=== PATIENT | female | born 1975 | race Caucasian/White ===

== ENCOUNTER 2016-11-13 07:27 | Observation (INO) | payer BC ==
--- NOTE | 2016-10-27 12:53 | GHP ---
[f rep st] PREOP HISTORY AND PHYSICAL DATE OF ADMISSION: 11/13/2016 PLANNED PROCEDURE: Total laparoscopic hysterectomy with bilateral salpingectomy and probable left o ophorectomy and possible bilateral oophorectomy. INDICATIONS: Patient is a 41-year-old, 0, with a longstanding history of chronic pelvic kerrie n, dysmenorrhea, and severe cramping. Patient had been on control pills for years, but stoppe d secondary to side effects. She was always bleeding, felt foggy. If she did not take her co ntrol pills at the exact same time of day she would bleed for a week or two. She also has PCOS and worsening hidradenitis suppurativa due to control pills. When she stopped her control p ills her period pain significantly increased, her periods are much heavier and crampy. Patient is r equesting definitive therapy. She does not plan on having any children. We had a long discussion w ith management options with the patient. We decided to proceed with a total laparoscopic hysterecto my with bilateral salpingectomy. She does have pain more on the left side than the right. She woul d like to have her left ovary removed. She has not had a diagnostic laparoscopy. We discussed the possibility of endometriosis and possibly needing to reoperate at some point to take out other ovary if her pain does not resolve; however, because she is 41 it would be preferable to not take out bot h of her ovaries at this time if possible. MEDICAL HISTORY: Significant for polycystic ovarian syndrome, hidradenitis suppurativa, dysmenorrhe a, cervical dysplasia, history of stomach ulcers. MEDICATIONS: Vitamins, Bactrim DS for her hidradenitis. SURGICAL HISTORY: Umbilical hernia repair, cholecystectomy, removal of hidradenitis suppurativa. ALLERGIES: Clindamycin. SOCIAL HISTORY: The patient denies tobacco or drug use. FAMILY MEDICAL HISTORY: Noncontributory. 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 Periods every 30 days, lasting 4 days. They are very heavy and c rampy. She has not tolerated control pills in the past. She does have a history of HPV. She had a low-grade Pap smear in 2014, which revealed ENMANUEL 1. Repeat Paps have been negative. She david es any history of any other sexually transmitted diseases. REVIEW OF SYSTEMS: 10-point review of systems is negative with the exception of the above mentioned pertinent positives. PHYSICAL EXAMINATION: VITAL SIGNS: Patient's blood pressure is 90/54. Her weight is 138. GENERAL APPEARANCE: No acute distress. PSYCH: Alert and oriented x3 and appropriate affect. LUNGS: Ihsan ar to auscultation bilaterally. HEART: Rate is regular. NECK: Supple, mobile, and there is no th yromegaly noted. ABDOMEN: There is no organomegaly. It is soft, nondistended, nontender. EXTREMI TIES: Reveal no calf tenderness or edema. PELVIC: Reveals a mobile, midposition uterus with no ad nexal masses. EXTREMITIES: Reveal no calf tenderness or edema. IMAGING: Pelvic ultrasound shows uterus measuring 7 x 4 x 5 cm with probable adenomyosis. Her endo metrium was 0.52 cm and there is a possible polyp on the inside of her uterus. Normal ovaries were noted. Endometrial biopsy was obtained which was unremarkable. ASSESSMENT AND PLAN: 41-year-old, 0, with a longstanding history of polycystic ovarian synd nyla, chronic pelvic pain, dysmenorrhea, and menorrhagia. The patient is electing to have definitiv e therapy with a total laparoscopic hysterectomy with bilateral salpingectomy. She would like to gonzalez ve her left ovary removed and possibly both ovaries if indicated. Risks and benefits have been exte nsively reviewed with the patient. The patient is aware that if she has both of her ovaries removed she will be at increased risk of early osteoporosis and will go into menopause. The patient has be en properly consented. /[id number]/MODL
[~2016-11-13 07:27] MED LIST: SCOPOLAMINE HYDROBROMIDE 1.5 MG PATCH TD ONE
[2016-11-13] MEDS ORDERED: BUPIVACAINE 0.5% 30 ML SDV ONE (07:42)
[2016-11-13] MEDS ORDERED: LIDOCAINE 1% 2 ML INJ ID PRN (07:51)
[2016-11-13] MEDS ORDERED: fentaNYL 100 MCG/2 ML INJ ONE ×2 (07:51→13:25)
[2016-11-13] MEDS ORDERED: DEXAMETHASONE 4 MG/ML VIAL ONE (07:51)
[2016-11-13] MEDS ORDERED: ONDANSETRON 4 MG/2 ML VIAL ONE ×2 (07:51→13:38)
[2016-11-13] MEDS ORDERED: LR 1,000 ML IV ONE (07:51)
[2016-11-13] MEDS ORDERED: PROPOFOL 200 MG/20 ML VIAL ONE (07:51)
[2016-11-13] MEDS ORDERED: ROCURONIUM 50 MG/5 ML VIAL ONE (07:51)
[2016-11-13] MEDS ORDERED: MIDAZOLAM 2 MG/2 ML VIAL IVP ONE (08:01)
--- NOTE | 2016-11-13 08:55 | PDANEPAE ---
ANE History of Present Illness 41 year old female with PCOS, obesity, and chronic pelvic pain. She has a history of PONV and placed her scopolamine patch on last evening. She is otherwise healthy and denies URI the last 6 weeks. ANE Past Medical History - Cardiovascular History Hx Hypertension: No Hx Arrhythmias: No Hx Chest Pain: No Hx Coronary Artery / Peripheral Vascular Disease: No Hx CHF / Valvular Disease: No Hx Palpitations: No - Pulmonary History Hx COPD: No Hx Asthma/Reactive Airway Disease: No Hx Recent Upper Respiratory Infection: No Hx Oxygen in Use at Home: No - Neurologic History Hx Cerebrovascular Accident: No Hx Seizures: No Hx Dementia: No - Endocrine History Hx Diabetes: No - Renal History Hx Renal Disorders: No - Liver History Hx Hepatic Disorders: No - Neurological & Psychiatric Hx Hx Neurological and Psychiatric Disorders: No - Cancer History Hx Cancer: No - Congenital Disorder History Hx Congenital Disorders: No - GI History Hx Gastrointestinal Disorders: No - Chronic Pain History Chronic Pain: Yes (PELVIC PAIN) ANE Review of Systems - Exercise capacity METS (RN): 6 METS ANE Patient History - Allergies Allergies/Adverse Reactions: acetaminophen [From [place]] Allergy (Verified 10/28/16 10:53) Itching clindamycin Allergy (Verified 10/28/16 10:53) Swelling/neck,face,throat gluten Allergy (Verified 11/10/16 18:05) hydrocodone [From [place]] Allergy (Verified 10/28/16 10:53) Itching Milk Containing Products [dairy] Allergy (Verified 11/10/16 18:05) - Home Medications Home Medications: Ascorbic Acid [Vitamin C 500 mg (*)] 1,000 mg PO DAILY 10/28/16 [Last Taken Unknown] Cholecalciferol Vit D3 [Vitamin D3 2000 units tab (OTC)] 10,000 units PO DAILY 10/28/16 [Last Taken Unknown] Herbals/Supplements -Info Only 1 ea PO DAILY 10/28/16 [Last Taken Unknown] Sulfamethox/Tmp 800/160 mg [Bactrim Ds] 1 tab PO DAILY 10/28/16 [Last Taken Unknown] Vitamin B Complex [B Complex] 2 each PO DAILY 10/28/16 [Last Taken Unknown] - NPO status NPO Since - Liquids (Date): 11/12/16 NPO Since - Liquids (Time): 00:00 NPO Since - Solids (Date): 11/12/16 NPO Since - Solids (Time): 00:00 - Smoking Hx Smoking Status: Never smoked - Family Anes Hx Family Hx Anesthesia Complications: NONE ANE Labs/Vital Signs - Vital Signs Blood Pressure: 96/65 Heart Rate: 76 Respiratory Rate: 16 O2 Sat (%): 94 Height: 154.94 cm Weight: 54.431 kg ANE Physical Exam - Airway Neck exam: FROM Mallampati Score: Class 1 Mouth exam: normal dental/mouth exam, poor dentition - Pulmonary Pulmonary: no respiratory distress - Cardiovascular Cardiovascular: regular rate and rhythym - ASA Status ASA Status: I (multiple chips on upper and lower teeth)
--- NOTE | 2016-11-13 09:00 | PDHPUP ---
History & Physical Update H&P update statement: This history and physical update is based on an assessment of the patient which was completed after admission or registration (within 24 hours), but prior to the surgery/procedure. H&P update: H&P reviewed & patient examined, no change in patient's condition since H&P completed (will remove bilateral fallopian tubes and likely the right ovary. if endometriosis may only want minimal ablation of it )
[2016-11-13] MEDS ORDERED: ceFAZolin 2 GM/DEXTROSE 100 ML IV ONE ×2 (09:14→09:16)
[2016-11-13] MEDS ORDERED: ceFAZolin 1 GM VIAL ONE (09:16)
[2016-11-13] MEDS ORDERED: OXYCODONE/APAP 5/325 TAB PO PRN (09:46)
[2016-11-13] MEDS ORDERED: PROMETHAZINE HCL 25 MG/ML INJ IVP PRN (09:46)
[2016-11-13] MEDS ORDERED: NALOXONE HCL 0.4 MG/ML INJ IVP PRN (09:46)
[2016-11-13] MEDS ORDERED: ONDANSETRON 4 MG/2 ML VIAL IVP PRN (09:46)
[2016-11-13] MEDS ORDERED: MEPERIDINE 25 MG/ML SYR IVP PRN (09:46)
[2016-11-13] MEDS ORDERED: LR 500 ML IV PRN (09:46)
[2016-11-13] MEDS ORDERED: morphINE *ANESTHESIA ONLY* 10 MG/ML VIAL ONE (10:20)
[2016-11-13] MEDS ORDERED: HYDROCODONE/APAP 5/325 TAB PO PRN (13:26)
[2016-11-13] MEDS: fentaNYL 100 MCG/2 ML INJ IVP PRN ×2 (13:27→13:44)
[2016-11-13] MEDS ORDERED: LR 1,000 ML IV SCH (13:30)
--- NOTE | 2016-11-13 14:24 | POSTANESTH ---
Post Anesthetic Evaluation Cardiovascular Status: Normal, Stable Respiratory Status: Normal, Stable Level of Consciousness/Mental Status: Can Participate in Eval Pain Control: Adequate, Prn Tx Ordered Nausea/Vomiting Control: Adequate, Prn Tx Ordered Complications Possibly Related to Anesthesia: None Noted
[2016-11-13] MEDS: ONDANSETRON 4 MG/2 ML VIAL IVP PRN ×2 (18:28→22:22)
[2016-11-13] MEDS: KETOROLAC 15 MG/1 ML SDV IVP SCH (18:56)
--- NOTE | 2016-11-13 19:19 | POSTOPPROG ---
Post Op Note Date of Operation: 11/13/16 Surgeon: Tamiko Johnson Gis Mapping Technician: hui smiley Anesthesia: GET(General Endotracheal) Pre-op Diagnosis: chronic pelvic pain, menorrhagia Post-op Diagnosis: same Procedure: total laparoscopic hysterectomy, bilateral salpingectomy, left oophrectomy Inf/Abcess present in the surg proc area at time of surgery?: No EBL: 50-100 Specimen(s): uterus, bilateral tubes, left ovary
--- NOTE | 2016-11-13 19:22 | SOAPPROG ---
SOAP Progress Note Assessment/Plan: Assessment: pod# 0 s/p TLH BS uncomplicated post operative course Plan: routine post operative care 11/13/16 19:21 Subjective: patient is doing great. had an episode of nausea. pain is well controlled. tolerating clears. long discussion about surgical findings and locating needle intraoperatively. Objective: Vital Signs Temp Pulse Resp BP Pulse Ox 36.5 C 72 16 100/65 100 11/13/16 17:32 11/13/16 17:32 11/13/16 17:32 11/13/16 17:32 11/13/16 17:32 11/12/16 11/13/16 11/14/16 05:59 05:59 05:59 Intake Total 100 Output Total 350 Balance -250 Physical Exam - Physical Exam General Appearance: WD/WN, alert, no apparent distress Respiratory: chest non-tender, lungs clear, normal breath sounds Cardiac/Chest: normal peripheral pulses, regular rate, rhythm Abdomen: normal bowel sounds, non-tender, soft Skin: normal color, warm/dry Extremities: normal range of motion, non-tender, normal inspection, normal capillary refill Neuro/Psych: no motor/sensory deficits, alert, normal mood/affect, oriented x 3 ICD10 Worksheet Patient Problems: Problems Problem Status Onset Menorrhagia Acute Menorrhagia Acute
[2016-11-14] MEDS: KETOROLAC 15 MG/1 ML SDV IVP SCH ×3 (00:07→11:22)
[2016-11-14 04:56] LABS: HEMATOCRIT 30.1 % (38.0-47.0); HEMOGLOBIN 10.2 g/dL (12.6-16.3)
[2016-11-14 05:24] VITALS: O2SAT 96
[2016-11-14] MEDS: ONDANSETRON 4 MG/2 ML VIAL IVP PRN (05:34)
[2016-11-14] MEDS: OXYCODONE/APAP 5/325 TAB PO PRN ×3 (05:35→11:24)
[2016-11-14] MEDS ORDERED: PATCH REMOVAL 1 EA PATCH TD ONE (06:00)
--- NOTE | 2016-11-14 06:30 | GOP ---
[f rep st] OPERATIVE REPORT DATE OF OPERATION: 11/13/2016 SURGEON: Tamiko Johnson DO ACCOUNTS PAYABLE ASSISTANT: Sylwia Page. ANESTHESIA: General endotracheal tube. PREOPERATIVE DIAGNOSIS: Chronic pelvic pain, dysmenorrhea and menorrhagia. POSTOPERATIVE DIAGNOSIS: Chronic pelvic pain, dysmenorrhea and menorrhagia. PROCEDURE PERFORMED: Total laparoscopic hysterectomy with bilateral salpingectomy and left oophorectomy and location of misplaced needle. FINDINGS: 1. Exam under anesthesia, mobile, mid position uterus with no adnexal masses. 1. Laparoscopic findings: Normal ovaries, uterus and tubes. Right ovary had a simple cyst on it. Left ovary is unremarkable. 2. SPECIMENS: Uterus, bilateral fallopian tubes and left ovary. ESTIMATED BLOOD LOSS: 10 cc. INDICATIONS: Patient is a 41-year-old, 0 with a longstanding history of polycystic ovarian syndrome, chronic pelvic pain, dysmenorrhea and menorrhagia and patient has failed medical therapy and would like to proceed with definitive therapy with total laparoscopic hysterectomy with bilateral salpingectomy and removal of her left ovary. Risks have been extensively reviewed with the patient. Patient then properly consented. DESCRIPTION OF PROCEDURE: Patient was taken to the operating room with intravenous fluids in place. She was given 2 g of Ancef. She was then placed on the operating room table in the dorsal supine position where general anesthesia was obtained with a glide scope. She was then repositioned to the dorsal lithotomy position with the Yellofin stirrups and prepped and draped in the normal sterile fashion. Exam under anesthesia revealed a mobile mid position uterus with no adnexal masses. A speculum was then placed in the patient's vagina and a single-tooth tenaculum was used to grasp the anterior lip of the cervix and the cervix was then sounded to 8 cm. The BRENDON uterine manipulator was then assembled with the large plastic cup and the 6 cm uterine manipulator. This was then introduced after both balloons were tested and the uterus was then freely mobile. The speculum was then withdrawn. Attention was then turned to the patient's abdomen where a 5 mm skin incision was then made in the umbilicus. A 5 mm trocar was then advanced into the patient's abdomen under direct visualization with the Optiview. The abdomen was then insufflated with CO2 gas until an adequate pneumoperitoneum was achieved. The area underneath the trocar insertion site was found to be unremarkable. A 5 mm skin incision was then made in the patient's right lower quadrant. The trocar was advanced into the patient's abdomen under direct visualization. Attention was then turned to the patient's left lower quadrant where a 10 mm skin incision was then made and a 10 mm trocar was then advanced into the patient's abdomen under direct visualization. The uterus was freely mobile. The ovaries, uterus and tubes were overall unremarkable. Because the patient has history of more pain on the left lower quadrant, patient requested the left ovary to be removed. A left salpingo-oophorectomy was performed and the left ovary and tube were then placed in the posterior cul-de-sac. The bilateral ureters were noted to be peristalsing. The left round ligament was then clamped and transected with the LigaSure. The anterior and posterior leaflets of the broad ligament were then clamped, cauterized, and transected. The uterine arteries were then skeletonized, clamped, cauterized, and transected. The bladder flap was created anteriorly and the colpotomy ring was clearly visualized and palpated. Attention was then turned to the patient's right side. The ovary was unremarkable with the exception of a small simple cyst. This was incised and drained and hemostasis was assured. The right salpingectomy was performed and the specimen was then placed in the posterior cul-de-sac. The right round ligament and broad ligaments were then clamped, cauterized, and transected. The uterine arteries were then skeletonized, clamped, cauterized, and transected. The bladder flap was created anteriorly and the colpotomy ring was clearly identified. The LigaSure hook was then used to perform the colpotomy. This was done without difficulty. The uterus was then withdrawn into the patient's vagina and handed off as specimen. A Ray-Michael and a glove was then inserted into the vagina to maintain pneumoperitoneum. The V-Loc Endocrine: - stitch was then used to close the vaginal cuff in a running fashion. Hemostasis was achieved. Once the vaginal cuff was closed, the endo-stitch suture was cut. The needle dislodged from the endo-stitch, so then it was grasped with a [place] and then attempted to be withdrawn through the trocar. It did not come out through because the needle was slightly wider than the tip of the trocar. The trocar was withdrawn with the suture in the tip of the [place]. When the trocar was then withdrawn, the needle was no longer in the [place]. The area underneath the trocar was explored and no needle was appreciated. We obtained a flatplate x-ray of the abdomen and the needle was suspected to be in the tissue between the peritoneum and the skin. Radiologist was consulted and came into the operating room. The C-arm was used initially to attempt to identify and locate the needle. A 2nd incision was made lower on the abdomen over the needle site on the C-arm. We spent 2+ hours trying to localize this needle. Dr Jony Guzman was then called in to help facilitate isolating the needle, which he was able to do. Following completion of this, the ovary and tube were then withdrawn through the trocar without difficulty and handed off with part of the specimen. The trocars were removed from the patient's abdomen after CO2 gas was expressed. The fascia was closed with 0 Vicryl and the 10 mm trocar site where the needle had been found, as the fascial incision had been extended. Hemostasis was assured. The skin was then closed of all the incisions with 4-0 Monocryl in a subcuticular fashion. A speculum exam was performed and the vaginal cuff was noted to be intact. Patient was then returned to the dorsal supine position where she was easily awoken from anesthesia. Sponge, lap and needle counts were correct x2. Patient was transported to recovery room in stable condition. /[id number]/MODL MTDD
[2016-11-14] MEDS ORDERED: ONDANSETRON DISINTEGRATING 4 MG TAB PO PRN (08:24)
--- NOTE | 2016-11-14 08:26 | SOAPPROG ---
SOAP Progress Note Assessment/Plan: Assessment: pod# 1 s/p TLH BS uncomplicated post operative course Plan: routine post operative care discharge instructions 11/14/16 08:24 Subjective: patient is doing great. pain is well controlled with toradol and one percocet. mason removed last night. voiding without difficulty. minimal vaginal spotting with wiping. ambulating. tolerating diet. no concerns or complaints. is ready to go home. reviewed discharge instructions and follow up plan. Objective: Vital Signs Temp Pulse Resp BP Pulse Ox 37 C 71 17 94/56 L 96 11/14/16 05:22 11/14/16 05:22 11/14/16 05:22 11/14/16 05:22 11/14/16 05:22 Laboratory Results 11/14/16 04:26 11/13/16 11/14/16 11/15/16 05:59 05:59 05:59 Intake Total 900 Output Total 650 Balance 250 Physical Exam - Physical Exam General Appearance: WD/WN, alert, no apparent distress Respiratory: chest non-tender, lungs clear, normal breath sounds Cardiac/Chest: normal peripheral pulses, regular rate, rhythm Abdomen: normal bowel sounds, non-tender, soft Skin: normal color, warm/dry, other (incisions clean dry and intact) Extremities: normal range of motion, non-tender, normal inspection, normal capillary refill Neuro/Psych: no motor/sensory deficits, alert, normal mood/affect, oriented x 3 ICD10 Worksheet Patient Problems: Problems Problem Status Onset Menorrhagia Acute Menorrhagia Acute
[2016-11-14 08:27] VITALS: BP 83/45; PULSE 81; RESP 18; TEMP 98.1
--- NOTE | 2016-11-14 13:21 | GDS ---
[f rep st] DISCHARGE SUMMARY ADMISSION DIAGNOSIS: Chronic pelvic pain and menorrhagia. DISCHARGE DIAGNOSIS: Chronic pelvic pain and menorrhagia, status post total laparoscopic hysterecto my with bilateral salpingectomy and left oophorectomy. HISTORY OF PRESENT ILLNESS: The patient is a 41-year-old 0, who had a longstanding history of chronic pelvic pain and heavy periods. She elected to proceed with a total laparoscopic hysterec tyree with bilateral salpingectomy and removal of her left ovary. The patient's surgery was uncompli cated with the exception of needing to spend additional time locating a small needle that became dis lodged in her subcutaneous tissue. That was ultimately found, but the remainder of her postoperativ e course was unremarkable. On postoperative day #0, patient's May catheter was removed. She was able to ambulate. She was voiding without difficulty and tolerating her diet. Her pain has been we ll controlled. On postoperative day #1, patient is ambulating, passing gas, tolerating a regular di et, and her pain is well controlled with Toradol and 1 Percocet. The patient will be discharged to home with a prescription for Zofran for nausea, ibuprofen and Percocet. She is instructed that she may take a shower today and to keep the incisions clean and dry. She is instructed to have nothing in the vagina for 9 weeks. She is to call if she is bleeding more than a pad in an hour or if she h as any temperature greater than 100.5 or any questions or her incisions become erythematous. The pa tient is to gradually increase activity as tolerated and use common sense in terms of activity. No heavy lifting for the next 9 weeks. The patient is instructed to follow up in our office in 2 weeks and 6 weeks for routine postoperative visits. The patient is to call if she has any questions. /[id number]/MODL
[2016-11-14] MEDS ORDERED: IBUPROFEN 600 MG TAB PO SCH (13:29)
== END 2016-11-14 11:45 | disposition home or self-care (01) ==
LOC: F3E 07:27 → PREINTOOBSV 10:33 → PREOBSVTOIN 10:43 → F1N 17:21
PROVIDERS: ADMIT Obstetrics & Gynecology; ATTEND Obstetrics & Gynecology
PROC: 0UT74ZZ Resection of Bilateral Fallopian Tubes, Percutaneous Endoscopic Approach (ICD-10-PCS; principal; 2016-11-13 09:00)
PROC: 0UTC7ZZ Resection of Cervix, Via Natural or Artificial Opening (ICD-10-PCS; principal; 2016-11-13 09:00)
PROC: 0JC80ZZ Extirpation of Matter from Abdomen Subcutaneous Tissue and Fascia, Open Approach (ICD-10-PCS; principal; 2016-11-13 09:00)
PROC: 0UT9FZZ Resection of Uterus, Via Natural or Artificial Opening With Percutaneous Endoscopic Assistance (ICD-10-PCS; principal; 2016-11-13 09:00)
PROC: 0UT14ZZ Resection of Left Ovary, Percutaneous Endoscopic Approach (ICD-10-PCS; principal; 2016-11-13 09:00)
DX: R10.2 Pelvic and perineal pain (principal); N92.0 Excessive and frequent menstruation with regular cycle; T81.89XA Other complications of procedures, not elsewhere classified, initial encounter; M79.5 Residual foreign body in soft tissue; E28.2 Polycystic ovarian syndrome; L73.2 Hidradenitis suppurativa; N94.6 Dysmenorrhea, unspecified
CPT/HCPCS: 10120; 58571; 74000; 76001; G0378; J0690; J1100; J1885; J2250; J2405; J2704; J3010